=== PATIENT | female | born 1980 | race Caucasian/White ===

== ENCOUNTER 2018-06-24 18:18 | Emergency (ER) | payer OTHER ==
[~2018-06-24] VITALS: Ht 170.2 cm; Wt 53.8 kg
[2018-06-24 18:55] LABS: HEMATOCRIT 40.7 % (36.0-46.0); HEMOGLOBIN 14.6 G/DL (11.9-15.5); MCHC 35.9 G/DL (30.0-36.0); PLATELET COUNT 382 K/uL (156-360); RBC DIS.WIDTH-CV 13.1 % (11.8-14.6); RBC DIS.WIDTH-SD 50.3 % (39-53); RED BLOOD COUNT 3.95 M/uL (3.80-5.20); WHITE BLOOD COUNT 8.9 K/uL (4.1-10.2)
[2018-06-24 19:08] LABS: ALBUMIN 3.7 g/dL (3.2-4.8); CHLORIDE 106 mEq/L (99-109); POTASSIUM 3.3 mEq/L (3.7-5.4); SODIUM 139 mEq/L (136-147)
[2018-06-24 19:11] LABS: GLUCOSE 111 mg/dL (70-99); TOTAL PROTEIN 7.4 g/dL (6.4-8.3)
[2018-06-24 19:12] LABS: TOTAL BILIRUBIN 0.6 mg/dL (0.0-1.0)
[2018-06-24 19:14] LABS: ALKALINE PHOSPHATASE 182 IU/L (3-129); CREATININE 0.7 mg/dL (0.6-1.3); GFR ESTIMATE (CALCULATED) > 59 mL/min/
[2018-06-24 19:15] LABS: UREA NITROGEN (BUN) 4 mg/dL (9-23)
[2018-06-24 19:16] LABS: AST (GOT) 61 IU/L (2-34)
[2018-06-24 19:17] LABS: ALT (GPT) 33 IU/L (3-49)
[2018-06-24 19:28] LABS: QUANTITATIVE HCG < 4.0 MIU/ML
[2018-06-24 19:50] LABS: APPEARANCE CLOUDY ((CLEAR)); BILIRUBIN NEGATIVE; BLOOD NEGATIVE; COLOR YELLOW ((YELLOW)); GLUCOSE (STRIP) NEGATIVE; KETONES NEGATIVE; LEUKOCYTES NEGATIVE; NITRITE NEGATIVE; PROTEIN (STRIP) NEGATIVE; SPECIFIC GRAVITY 1.016 (1.000-1.030); UROBILINOGEN 0.2 MG/DL (0.2-1.0)
[2018-06-24 20:04] LABS: BACTERIA NONE SEEN /HPF; CALCIUM OXALATE CRYSTALS 4+ /HPF; EPITHELIAL CELLS 1+ /HPF; MUCUS 1+ /LPF; RED BLOOD CELLS 0-5 /HPF (0-5); UCUL ADDED? NO; WHITE BLOOD CELLS 0-5 /HPF (0-5)
[2018-06-24] MEDS ORDERED: NORCO 5/3251 TABLET PO (21:49)
[2018-06-24] MEDS ORDERED: PEPCID20 MG PO (21:49)
[2018-06-24] MEDS ORDERED: ZOFRAN ODT8 MG PO (21:49)
[2018-06-24 21:59] VITALS: BP 138/76
== END 2018-06-24 22:00 | disposition home or self-care (01) ==
LOC: EME 18:18
DX: R10.13 Epigastric pain (principal); B19.20 Unspecified viral hepatitis C without hepatic coma; F32.9 Major depressive disorder, single episode, unspecified; F17.200 Nicotine dependence, unspecified, uncomplicated; Z91.5 Personal history of self-harm; Z88.1 Allergy status to other antibiotic agents
CPT/HCPCS: 76705; 80053; 81003; 84702; 85027; 99281; 99283

== ENCOUNTER 2018-06-28 17:19 | Emergency (ER) | payer OTHER ==
[~2018-06-28] VITALS: Ht 170.2 cm; Wt 54.7 kg
[~2018-06-28 17:19] MED LIST: NORCO 5/3251 TABLET PO; PEPCID20 MG PO; ZOFRAN ODT8 MG PO
[2018-06-28] MEDS ORDERED: AUGMENTIN875 MG PO (17:54)
[2018-06-28] MEDS ORDERED: PERCOCET 5/31 TABLET PO (17:54)
[2018-06-28 18:30] VITALS: BP 117/80
== END 2018-06-28 18:50 | disposition home or self-care (01) ==
LOC: EME 17:19
PROC: 3E0234Z Introduction of Serum, Toxoid and Vaccine into Muscle, Percutaneous Approach (ICD-10-PCS; principal; 2018-06-28)
DX: S51.851A Open bite of right forearm, initial encounter (principal); W54.0XXA Bitten by dog, initial encounter; Z23 Encounter for immunization; F17.200 Nicotine dependence, unspecified, uncomplicated
CPT/HCPCS: 99281; 99283

== ENCOUNTER 2018-06-29 13:38 | Emergency (ER) | payer SELFPAY ==
[~2018-06-29] VITALS: Ht 170.2 cm; Wt 54.4 kg
[~2018-06-29 13:38] MED LIST changes: +AUGMENTIN875 MG PO; +PERCOCET 5/31 TABLET PO
[2018-06-29 13:43] VITALS: BP 144/99
== END 2018-06-29 14:58 | disposition left against medical advice (07) ==
LOC: EME 13:38
DX: Z76.0 Encounter for issue of repeat prescription (principal); M79.641 Pain in right hand; S61.551A Open bite of right wrist, initial encounter; W54.0XXA Bitten by dog, initial encounter; Z53.29 Procedure and treatment not carried out because of patient's decision for other reasons; F17.200 Nicotine dependence, unspecified, uncomplicated